=== PATIENT | female | born 1970 | race Caucasian/White ===

== ENCOUNTER 2016-07-02 21:53 | Emergency (ER) | payer BC ==
[~2016-07-02] VITALS: Ht 162.6 cm; Wt 134.1 kg
[~2016-07-02 21:53] MED LIST: ATIVAN 1MG T1 MG/TAB PO; XOPENEX 1.1.25 MG/3 IH; ZITHROMAX Z PA250 MG PO
[2016-07-02 21:56] VITALS: BP 172/65; TEMP 97.7
[2016-07-02 22:56] LABS: PH 6 (5-8); URINE APPEARANCE Cloudy; URINE BACTERIA None Seen /hpf; URINE BILIRUBIN Negative (NEGATIVE); URINE BLOOD 3+ (NEGATIVE); URINE COLOR Yellow; URINE GLUCOSE Negative (NEGATIVE); URINE KETONE Negative (NEGATIVE); URINE RBC >50 /hpf; URINE UROBILINOGEN Negative (NEGATIVE); URINE WBC >50 /hpf
[2016-07-02] MEDS ORDERED: MACROBID 1100 MG/CAP PO (23:11)
[2016-07-02] MEDS ORDERED: PYRIDIUM200 M1 PO (23:12)
[2016-07-02 23:24] VITALS: PULSE 88
== END 2016-07-02 23:22 | disposition home or self-care (01) ==
LOC: COL.ER 21:53
PROVIDERS: Nurse Practitioner
DX: N39.0 Urinary tract infection, site not specified (principal); B96.20 Unspecified Escherichia coli [E. coli] as the cause of diseases classified elsewhere

== ENCOUNTER → 2023-03-21 | Outpatient (CLI) | payer OTHER ==
[~2023-03-21] MED LIST changes: +MACROBID 1100 MG/CAP PO; +NORCO 325 MG-51 TAB PO; +PYRIDIUM200 M1 PO; +ZOFRAN ODT4 MG PO
== END ==
LOC: COL.RAD 11:11
DX: Z02.71 Encounter for disability determination (principal); M17.11 Unilateral primary osteoarthritis, right knee; M51.36 Other intervertebral disc degeneration, lumbar region